=== PATIENT | female | born 1970 | race Two or more races ===

== ENCOUNTER 2017-11-20 16:12 | Emergency (ER) | payer SELFPAY ==
[~2017-11-20] VITALS: Ht 165.1 cm; Wt 61.2 kg
[2017-11-20 16:12] VITALS: BP 112/81
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
[2017-11-20 16:58] LABS: BASOPHILS % (AUTO) 0.5 % (0.0-2.0); EOSINOPHILS % (AUTO) 0.3 % (0.0-6.0); HEMATOCRIT 33 % (33-45); HEMOGLOBIN 10.6 g/dL (11.5-14.8); LYMPHOCYTES # (AUTO) 1.7 /CMM (0.8-4.8); LYMPHOCYTES % (AUTO) 26.8 % (20.0-44.0); MEAN CORPUSCULAR HEMOGLOBIN 28 PG (26.0-33.0); MEAN CORPUSCULAR HGB CONC 33 g/dl (31.0-36.0); MEAN CORPUSCULAR VOLUME 85 fL (82-100); MONOCYTES # (AUTO) 0.3 /CMM (0.1-1.30); MONOCYTES % (AUTO) 4.8 % (2.0-12.0); NEUTROPHILS # (AUTO) 4.2 /CMM (1.8-8.9); NEUTROPHILS % (AUTO) 67.6 % (43.0-81.0); PLATELET COUNT (AUTO) 392 /CMM (150-450); RDW COEFFICIENT OF VARIATION 14.3 (11.5-15.0); RED BLOOD CELL COUNT(AUTO) 3.81 MIL/uL (4.0-5.2); WHITE BLOOD COUNT (AUTO) 6.3 K/uL (4.3-11.0)
[2017-11-20] MEDS ORDERED: ONDANSETRON HCL/PF 4 MG/2 ML VIAL ONE (16:58)
[2017-11-20] MEDS ORDERED: MORPHINE SULFATE INJ 4 MG/ML DISP.SYRIN ONE (16:59)
[2017-11-20] MEDS: ONDANSETRON HCL/PF - ER 4 MG/2 ML VIAL IV ONE (17:07)
[2017-11-20] MEDS: MORPHINE SULFATE INJ 2 MG/ML DISP.SYRIN IV ONE (17:07)
[2017-11-20] MEDS: IV NS 0.9% 1,000 ML BAG IV ONE (17:07)
--- NOTE | 2017-11-20 17:09 | NUR ---
20G RIGHT AC IV STATRED, MEDICATED PT ORDERED
[2017-11-20 17:22] LABS: INR 0.96 (0.87-1.13)
[2017-11-20 17:28] LABS: CALCIUM, SERUM 8.6 mg/dL (8.5-10.1); CREATININE 0.7 mg/dL (0.6-1.3); POTASSIUM 3.7 mmol/L (3.5-5.1)
[2017-11-20 17:35] LABS: ALBUMIN 3.6 g/dL (3.4-5.0); BILIRUBIN,TOTAL 0.2 mg/dL (0.2-1.0)
[2017-11-20] MEDS ORDERED: IV NS 0.9% 250 ML IV ONE (17:35)
[2017-11-20] MEDS ORDERED: IOHEXOL-300 100 ML VIAL IV ONE (17:35)
--- NOTE | 2017-11-20 19:32 | NUR ---
PT REFUSING FOREARM XRAY, DR. MURPHY IS AWARE.
== END 2017-11-20 19:51 | disposition home or self-care (01) ==
LOC: ER 16:14
DX: M54.2 Cervicalgia (principal); M79.632 Pain in left forearm; R10.9 Unspecified abdominal pain; D64.9 Anemia, unspecified; V49.49XA Driver injured in collision with other motor vehicles in traffic accident, initial encounter; Y93.89 Activity, other specified; Y92.413 State road as the place of occurrence of the external cause; Y99.8 Other external cause status
CPT/HCPCS: 36415; 71045; 72125; 74160; 80048; 80076; 83690; 85025; 85730; 96361; 96374; 96375; 99285; A4606; J2270; J2405 ×2; J7050; Q9967; Z7610